=== PATIENT | male | born 2000 | race Hispanic/Latino ===

== ENCOUNTER 2024-12-18 21:33 | Emergency (ER) | payer OTHER ==
[~2024-12-18] VITALS: Ht 177.8 cm; Wt 63.5 kg
--- NOTE | 2024-12-18 21:44 | ERN ---
ED Note History of Present Illness Stated Complaint: MEDICAL CLEARANCE FOR [facility] Chief Complaint: Medical Clearance Time Seen by MD: 21:36 Time Seen by Midlevel: 21:36 Dictation: Ms. Euceda is a 24 year old transgender female (assigned male at ) who presented to the emergency department this evening for medical clearance. Patient was to be admitted at [facility] but became anxious and it was reported that she was rolling around on the floor. She was referred to ED for medical philippe arance examination. She states that she has been "moving fast" and is having an "identity crisis". She denies intent to harm self or others. She denies use of alcohol or recreational drugs. She denies fever, chills, shortness of breath, cough, chest pain, palpitations, edema, abdominal pain, nausea, vomiting, hematemesis, constipation, diarrhea, melena, hematochezia, dysuria, headache, dizziness, or focal weakness/paresthesia Allergies: Coded Allergies: No Known Drug Allergies (Unverified Allergy, Unknown, 12/18/24) Past Medical History Past Medical History: Depression PSYCH History: anxiety, bipolar, depression, post traumatic stress Social History: Lives with family RN Note Reviewed/Agreed w/PFSH: Yes Review of System Dictation REVIEW OF SYSTEMS: CONSTITUTIONAL: Patient denies fevers, chills, sweats and weight changes. EYES: Patient denies any visual symptoms. EARS, NOSE, AND THROAT: No difficulties with hearing. No symptoms of rhinitis or sore throat. CARDIOVASCULAR: Patient denies chest pains, palpitations, orthopnea and paroxysmal nocturnal dyspnea. RESPIRATORY: No dyspnea on exertion, no wheezing or cough. GI: No nausea, vomiting, diarrhea, constipation, abdominal pain, hematochezia or melena. : No urinary hesitancy or dribbling. No nocturia or urinary frequency. No abnormal urethral discharge. MUSCULOSKELETAL: No myalgias or arthralgias. NEUROLOGIC: No chronic headaches, no seizures. Patient denies numbness, tingling or weakness. PSYCHIATRIC: She states that she feels "very fast" and "has identity crisis". She denies intent to harm self or others. She denies auditory or visual hallucinations. ENDOCRINE: No excessive urination or excessive thirst. DERMATOLOGIC: Patient denies any rashes or skin changes. Initial Vital Sign VS Vital Signs Date Time Temp Pulse Resp B/P (MAP) Pulse Ox O2 Delivery O2 Flow Rate FiO2 12/18/24 21:35 98.8 96 18 114/72 99 Room Air* 0 21 Physical Exam Dictation Vital signs: Reviewed. Afebrile. Constitutional: Moderate distress; pacing. Head/Face: Normocephalic, atraumatic. Eyes: Periorbital areas with no swelling, redness, or edema. Lids and lashes are normal. Conjunctival injection is absent. Sclera anicteric. Pupils equal, round, reactive to light. ENT: Pinnas intact and no signs of trauma or erythema. Ear canals clear and no discharge. TMs no erythema. No nasal discharge or bleeding noted. Oropharynx with no exudate, redness, swelling, masses, exudates, or evidence of obstruction. Uvula midline. Mucous membranes moist. Neck: Trachea midline, no masses palpated, and no cervical lymphadenopathy. No swelling. Supple, full range of motion. Chest/Axilla: No tenderness, no crepitus, no paradoxical movement, no retractions. Cardiovascular: Regular rate, regular rhythm, no murmur, no gallops. Symmetric pulses. No peripheral edema. Respiratory: Respirations even and unlabored. Lung sounds clear; no wheezes, rales or rhonchi. Room air spo2 99%. Gastrointestinal: Inspection is normal. No distention is appreciated. Bowel sounds are normal. No mass or organomegaly . There is no tenderness. No rebound. No rigidity. No voluntary or involuntary guarding. No Suarez's sign. Psych: hyperverbal. Manic. Neurological: Normal speech, gross motor function intact, gross sensory function intact. No focal weakness/Paresthesia. Oriented x 3. Musculoskeletal/Extremities: All extremities have full range of motion, no pain or tenderness on palpation. Symmetric pulses. Integumentary: Intact. Skin is normal color, warm and dry. Cap refill less than 2 seconds. Results (Laboratory/Radiology) Laboratory/Radiology Laboratory Tests Test 12/18/24 21:52 White Blood Count 9.9 K/uL (4.8-10.8) Red Blood Count 3.98 MIL/uL (4.50-6.20) L Hemoglobin 11.9 g/dL (14.0-18.0) L Hematocrit 35.8 % (42-54) L Mean Corpuscular Volume 89.9 fL (79-99) Mean Corpuscular Hemoglobin 29.9 pg (27.0-33.0) Mean Corpuscular Hemoglobin Concent 33.2 g/dL (32.0-36.0) Red Cell Distribution Width 12.9 % (11.0-15.5) Platelet Count 338 K/uL (130-400) Mean Platelet Volume 10.0 fL (7.5-10.5) Immature Granulocyte % (Auto) 0.3 % (0-1) Neutrophils (%) (Auto) 74.5 % (40.0-77.0) Lymphocytes (%) (Auto) 15.7 % (21.0-51.0) L Monocytes (%) (Auto) 8.7 % (3.0-13.0) Eosinophils (%) (Auto) 0.3 % (0.0-8.0) Basophils (%) (Auto) 0.5 % (0.0-5.0) Neutrophils # (Auto) 7.4 K/uL (1.8-7.7) Lymphocytes # (Auto) 1.6 K/uL (1.0-4.8) Monocytes # (Auto) 0.9 K/uL (0.1-1.0) Eosinophils # (Auto) 0.03 K/uL (0.00-0.70) Basophils # (Auto) 0.05 K/uL (0.00-0.20) Absolute Immature Granulocyte (auto 0.03 K/uL (0-1) Nucleated Red Blood Cells 0.0 % (0.0-0.19) Sodium Level 141 mmol/L (136-145) Potassium Level 3.5 mmol/L (3.5-5.1) Chloride Level 106 mmol/L (101-111) Carbon Dioxide Level 32 mmol/L (21-32) Blood Urea Nitrogen 17 mg/dL (7-18) Creatinine 0.8 mg/dL (0.5-1.3) Glomerular Filtration Rate Calc 128 mL/min (>90) Random Glucose 91 mg/dL (70-105) Total Calcium 8.6 mg/dL (8.5-10.1) Total Bilirubin 0.6 mg/dL (0.2-1.0) Direct Bilirubin 0.2 mg/dL (0.0-0.3) Aspartate Amino Transf (AST/SGOT) 35 U/L (10-37) Alanine Aminotransferase (ALT/SGPT) 55 U/L (12-78) Alkaline Phosphatase 52 U/L (50-136) Total Protein 6.2 g/dL (6.0-8.3) Albumin 3.3 g/dL (3.5-5.0) L Salicylates Level < 2.8 mg/dL (2.8-20.0) L Acetaminophen Level < 1 mcg/mL (10-29) L Serum Alcohol < 3 mg/dL (0-10) Labs Reviewed?: Yes ED Course ED Course Orders Procedure Category Date Status Time Alcohol, Blood LAB 12/18/24 Complete 21:40 Drug Screen Urine LAB 12/18/24 Logged 21:40 Cbc With Differential LAB 12/18/24 Complete 21:40 Basic Metabolic Panel LAB 12/18/24 Complete 21:40 Urinalysis Profile LAB 12/18/24 Logged 21:40 Hepatic Function Panel LAB 12/18/24 Complete 21:40 Acetaminophen LAB 12/18/24 Complete 21:40 Salicylate LAB 12/18/24 Complete 21:40 Diphenhydramine Hcl PHA 12/18/24 Complete (Benadryl Inj) 22:30 Lorazepam 2 Mg PHA 12/18/24 Complete (Ativan) 22:30 Haloperidol Inj PHA 12/18/24 Complete (Haldol Inj) 22:30 Diazepam 5 Mg/Ml 2 Ml PHA 12/18/24 Complete Syg (Valium 5 Mg/M 22:30 Current Medications Medications (Trade) Dose Ordered Sig/Adelaida Route PRN Reason Start Time Stop Time Status Last Admin Dose Admin Diazepam (VALium 5 MG/ML 2 ML SYG) 5 mg ONCE ONCE IM 12/18/24 22:30 12/18/24 22:31 DC 12/18/24 22:31 Diphenhydramine HCl (BENAdryl INJ) 50 mg ONCE ONCE IM 12/18/24 22:30 12/18/24 22:31 DC 12/18/24 22:31 Haloperidol Lactate (Haldol Inj) 5 mg ONCE ONCE IM 12/18/24 22:30 12/18/24 22:31 DC 12/18/24 22:31 Lorazepam (AtiVAN) 2 mg ONCE ONCE IM 12/18/24 22:30 12/18/24 22:15 DC Vital Signs Date Time Temp Pulse Resp B/P (MAP) Pulse Ox O2 Delivery O2 Flow Rate FiO2 12/18/24 23:00 98.8 96 18 112/69 97 Room Air* 0 21 12/18/24 21:35 98.8 96 18 114/72 99 Room Air* 0 21 Patient appears to be in manic state. She has been pacing in ER, restless, hyperverbal. She has delusional thoughts; states "we are all deaf to the world". She states that she is learning 10 new languages. She exited the ED and was returned by Ramana HURLEY. She received doses Valium, Haldol, and Benadryl but remains anxious/restless. Laboratory findings as noted below. No elevation of WBC. No electrolyte derangement. H/H 11.9/35.8 and albumin 3.3. ETOH, Salicylate and Tylenol levels negative. She ate dinner tray as well as po fluids. She refuses to provide UA. ED charge nurse spoke with tumblers supervisor at [facility]; report given. Patient will be returned there for further treatment; accepted for transfer by Dr. Puente. Medical Decision Making MDM MDM: Differential diagnosis: Thania, psychosis Rationale: Tests considered and ordered secondary to shared decision making include: labs, ECG and radiology Previous outside records reviewed: Old ER visits. Risk of complication and/or morbidity or mortality of patient management: None Medications-Per medication reconciliation Need for hospitalization: Patient does meet criteria for hospitalization. will be transferred to inpatient psychiatric facility; [facility] Need for emergency major/minor surgery: No There are no social concerns with this patient. Prescription drug management Prescriptions will include symptomatic care Patient's prior external medical records from other ER visits were reviewed by me as indicated. Prior testing and results from previous visits were reviewed. Prior tests were taken into account with medical decision making and resource utilization, independent historian/historians were used to obtain complete medical history. I independently interpreted the test that were performed, results were reviewed by me and considered findings on radiology if ordered. Medical management and examination interpretation discussions were had by me with other qualified healthcare professionals as indicated for the patient's care. DX & DISP Disposition: Discharge Departure Impression: Primary Impression: Psychosis Additional Impressions: Thania, Medical clearance for psychiatric admission Condition: Stable Assign Patient to: Dr. Puente-[facility] Additional Instructions: Patient is medically cleared and will return to [facility] for admission/continued inpatient. psychiatric treatment. Time of Disposition: 23:05 MICHEL WELLER NP Dec 18, 2024 21:44
[2024-12-18 22:08] LABS: BASOPHILS # (AUTO) 0.05 K/uL (0.00-0.20); BASOPHILS % (AUTO) 0.5 % (0.0-5.0); EOSINOPHILS # (AUTO) 0.03 K/uL (0.00-0.70); EOSINOPHILS % (AUTO) 0.3 % (0.0-8.0); HEMATOCRIT 35.8 % (42-54); IMMATURE GRANULOCYTE ABSOLUTE 0.03 K/uL (0-1); LYMPHOCYTES # (AUTO) 1.6 K/uL (1.0-4.8); LYMPHOCYTES % (AUTO) 15.7 % (21.0-51.0); MEAN CORPUSCULAR HEMOGLOBIN 29.9 pg (27.0-33.0); MEAN CORPUSCULAR HGB CONC 33.2 g/dL (32.0-36.0); MEAN CORPUSCULAR VOLUME 89.9 fL (79-99); MONOCYTES # (AUTO) 0.9 K/uL (0.1-1.0); MONOCYTES % (AUTO) 8.7 % (3.0-13.0); NEUTROPHILS # (AUTO) 7.4 K/uL (1.8-7.7); NEUTROPHILS % (AUTO) 74.5 % (40.0-77.0); PLATELET COUNT (AUTO) 338 K/uL (130-400); RED BLOOD CELL COUNT(AUTO) 3.98 MIL/uL (4.50-6.20); RED CELL DISTRIBUTION WIDTH 12.9 % (11.0-15.5); WHITE BLOOD COUNT (AUTO) 9.9 K/uL (4.8-10.8)
[2024-12-18 22:17] LABS: CARBON DIOXIDE 32 mmol/L (21-32); CHLORIDE 106 mmol/L (101-111); CREATININE 0.8 mg/dL (0.5-1.3); GLOMERULAR FILTR. RATE CALC 128 mL/min (>90); GLUCOSE,RANDOM 91 mg/dL (70-105); POTASSIUM 3.5 mmol/L (3.5-5.1); SODIUM SERUM 141 mmol/L (136-145); UREA NITROGEN, BLOOD 17 mg/dL (7-18)
[2024-12-18 22:21] LABS: ALANINE AMINOTRANSFERASE 55 U/L (12-78); ALBUMIN 3.3 g/dL (3.5-5.0); ASPARTATE AMINOTRANSFERASE 35 U/L (10-37); BILIRUBIN,DIRECT 0.2 mg/dL (0.0-0.3); BILIRUBIN,TOTAL 0.6 mg/dL (0.2-1.0); TOTAL PROTEIN, SERUM 6.2 g/dL (6.0-8.3)
[2024-12-18 22:25] LABS: ACETAMINOPHEN < 1 mcg/mL (10-29); ALCOHOL, BLOOD < 3 mg/dL (0-10); SALICYLATE < 2.8 mg/dL (2.8-20.0)
[2024-12-18] MEDS ORDERED: LORazepam 2 MG/ML 1 ML VIAL IM ONE (22:30)
[2024-12-18] MEDS: HALOPERIDOL INJ 5 MG/ML VIAL IM ONE (22:31)
[2024-12-18] MEDS: diazePAM 5 MG/ML 2 ML SYG IM ONE (22:31)
[2024-12-18] MEDS: DiphenhydrAMINE HCL 50 MG/ML VIAL IM ONE (22:31)
--- NOTE | 2024-12-18 22:40 | NUR ---
PT GOT UP OUT OF BED, TOOK OFF BLUE SCRUBS AGAIN, TOOK OFF BLANKETS AND STOOD IN THE MIDDLE OF THE HALLWAY EXPOSING THEIR GENITALIA TO BYSTANDERS.
[2024-12-18 23:00] VITALS: BP 112/69; PULSE 96; RESP 18; TEMP 98.8; O2SAT 97
--- NOTE | 2024-12-19 | NUR ---
REPORT GIVEN TO ORLIN LOWERY [facility] [phone]
--- NOTE | 2024-12-19 00:07 | NUR ---
[facility] WAS CALLED AT THJIS TIME, [facility] /[facility] FAXED
[2024-12-19 01:07] LABS: APPEARANCE,URINE CLOUDY (CLEAR); BILIRUBIN,URINE NEGATIVE (NEGATIVE); COLOR,URINE COLORLESS (YELLOW); GLUCOSE, URINE (UA) NEGATIVE (NEGATIVE); KETONES,URINE NEGATIVE (NEGATIVE); LEUKOCYTE ESTERASE ,URINE NEGATIVE Leu/uL (NEGATIVE); NITRATE,URINE NEGATIVE (NEGATIVE); OCCULT BLOOD,URINE NEGATIVE (NEGATIVE); PROTEIN,URINE NEGATIVE (NEGATIVE); UROBILINOGEN,URINE 0.2 mg/dL (0.2-1.0)
[2024-12-19 01:08] LABS: ADD UA MICROSCOPIC YES
[2024-12-19 01:09] LABS: RBC,URINE 0-1 /HPF (0-1); SQUAMOUS EPITHELIAL CELL,UR RARE /HPF (0-2)
[2024-12-19 01:13] LABS: AMPHET/METH SCREEN,URINE NEGATIVE (NEGATIVE); BARBITURATE SCREEN, URINE NEGATIVE (NEGATIVE); BENZODIAZEPINES SCREEN,URINE POSITIVE (NEGATIVE); CANNABINOID SCREEN,URINE POSITIVE (NEGATIVE); COCAINE SCREEN,URINE NEGATIVE (NEGATIVE); OPIATE SCREEN,URINE NEGATIVE (NEGATIVE); PHENCYCLIDINE SCREEN,URINE NEGATIVE (NEGATIVE)
--- NOTE | 2024-12-19 01:25 | NUR ---
[facility] HERE TO TRANSPORT PATIENT TO [facility]
== END 2024-12-19 01:26 ==
LOC: EDH 21:33
DX: F29 Unspecified psychosis not due to a substance or known physiological condition (principal); F30.9 Manic episode, unspecified
CPT/HCPCS: 99284; 80076; 80048; 80305; 85025; 36415; 96372 ×3; 81001; G0481; J1200; J1630; J3360; 99285